=== PATIENT | female | born 1980 | race Caucasian/White ===

== ENCOUNTER → 2017-11-26 12:05 | Outpatient (CLI) | payer OTHER, BC, SELFPAY ==
--- NOTE | 2017-11-26 16:07 | NEURO ---
NCS and/or EMG Patient Report Ordering Doctor: García Morillo DATE OF SERVICE: 11/26/17 Nai Redding is a 37 year old female who presents for electrodiagnostic testing of the lower limbs. She reports numbness in both feet, worse on the right side. Electrodiagnostic findings: Peroneal motor nerve demonstrates normal distal latency, amplitude and conduction velocity bilaterally. However, there is evidence of approximately 50% loss of amplitude on the right side compared to the left. Tibial motor responses normal bilaterally. Normal F waves and H reflexes. Mildly prolonged sural latency is noted bilaterally. Normal plantar responses and superficial peroneal responses are noted bilaterally. On needle EMG, all muscles tested in the lower limbs showed no evidence of denervation with normal motor unit action potentials. Electrodiagnostic impression: This is an abnormal study in the lower limbs 1. 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 2. Findings demonstrate axonal loss in the right peroneal motor nerve, in comparison to the left side. While the amplitude on the right is not below normal limits, it is decreased when compared to the opposing side. 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 No electrodiagnostic evidence is noted for tarsal tunnel syndrome. If there are any further questions, please not hesitate to contact me.
== END ==
PROVIDERS: PCP Family Medicine; Visit Provider Podiatrist
DX: G57.50 Tarsal tunnel syndrome, unspecified lower limb (principal); G62.9 Polyneuropathy, unspecified
CPT/HCPCS: 95886; 95913